=== PATIENT | male | born 1970 | race Caucasian/White ===

== ENCOUNTER 2022-01-30 10:00 | Outpatient (CLI) | payer MEDICARE, SELFPAY ==
[2022-01-30 13:56] LABS: Chloride* 105 mmol/L (96-114); Sodium* 141 mmol/L (135-149)
[2022-01-30 13:57] LABS: Potassium* 4.4 mmol/L (3.6-5.1)
[2022-01-30 13:59] LABS: Alanine Aminotransferase* 26 U/L (4-50); Blood Urea Nitrogen* 16 mg/dL (7-30); Carbon Dioxide* 29 mmol/L (20-32); Cholesterol* 134 mg/dL (90-199); Creatinine* 0.7 mg/dL (0.5-1.5); Estimated Glomerular Filt Rate 112 ml/min; Glucose* 250 mg/dL (60-115)
[2022-01-30 14:00] LABS: Calcium* 9.4 mg/dL (8.4-10.6); HDL Cholesterol* 40 mg/dL (>=40); LDL Cholesterol Calculated 58 mg/dL (<100); Triglycerides* 179 mg/dL (40-149)
[2022-01-30 14:30] LABS: PSA Screen* 0.85 ng/mL (0.10-4.00)
== END 2022-01-30 10:01 | disposition home or self-care (01) ==
PROVIDERS: PCP Family Medicine; Visit Provider Family Medicine
DX: Z00.00 Encounter for general adult medical examination without abnormal findings (principal); I10 Essential (primary) hypertension; E78.5 Hyperlipidemia, unspecified; Z12.5 Encounter for screening for malignant neoplasm of prostate
CPT/HCPCS: 80048; 80061; 84153; 84460

== ENCOUNTER 2022-03-26 12:31 | Outpatient (RCR) | payer MEDICARE, SELFPAY | END 2022-10-09 10:13 | disposition home or self-care (01) | PROVIDERS: PCP Family Medicine; Visit Provider Family Medicine | DX: I69.398 Other sequelae of cerebral infarction (principal); R25.2 Cramp and spasm; Z51.89 Encounter for other specified aftercare | CPT/HCPCS: 97166; 97530 ==

== ENCOUNTER 2023-03-11 13:47 | Outpatient (CLI) | payer MEDICARE, SELFPAY ==
[2023-03-11 22:09] LABS: Basophils Percent Auto 0.4 % (0.0-3.0); Eosinophils Percent Auto 1.4 % (0.0-7.0); Hemoglobin* 14.2 gm/dL (13.5-17.5); Immature Granulocytes Pct Auto 0.1 %; Mean Corpuscular HGB Conc 34 gm/dL (32-36); Mean Corpuscular Hemoglobin 31 pg (26-34); Mean Corpuscular Volume 92 fL (80-100); Monocytes Percent Auto 5.5 % (0.0-11.0); Neutrophils Percent Auto 63.6 % (42.0-72.0); Platelet Count* 317 K/uL (140-440); RDW Coefficient of Variation % 12.9 % (11.5-15.5); Red Blood Count 4.59 m/uL (4.30-5.90); White Blood Count* 11.26 K/uL (4.50-11.00)
[2023-03-11 22:12] LABS: Chloride* 102 mmol/L (96-114); Sodium* 140 mmol/L (135-149)
[2023-03-11 22:13] LABS: Potassium* 3.3 mmol/L (3.6-5.1)
[2023-03-11 22:15] LABS: Alanine Aminotransferase* 23 U/L (4-50); Anion Gap 8 mEq/L (7-15); Blood Urea Nitrogen* 12 mg/dL (7-30); Carbon Dioxide* 30 mmol/L (20-32); Cholesterol* 117 mg/dL (90-199); Estimated Glomerular Filt Rate 91 ml/min; Glucose* 60 mg/dL (60-115)
[2023-03-11 22:16] LABS: Calcium* 9.5 mg/dL (8.4-10.6); HDL Cholesterol* 44 mg/dL (>=40); LDL Cholesterol Calculated 50 mg/dL (<100); Triglycerides* 114 mg/dL (40-149)
[2023-03-11 22:22] LABS: Slide Review Reflex No
[2023-03-11 22:39] LABS: PSA Screen* 0.22 ng/mL (0.10-4.00)
== END 2023-03-11 13:48 | disposition home or self-care (01) ==
PROVIDERS: PCP Family Medicine; Visit Provider Family Medicine
DX: E11.9 Type 2 diabetes mellitus without complications (principal); E78.2 Mixed hyperlipidemia; I10 Essential (primary) hypertension; R32 Unspecified urinary incontinence
CPT/HCPCS: 80048; 80061; 84153; 84460; 85025

== ENCOUNTER 2023-08-26 13:51 | Outpatient (CLI) | payer MEDICARE, SELFPAY ==
--- NOTE | 2023-08-26 14:00 | US_ITS ---
Patient: LYNDON VILLARREAL Facility:?[facility] Patient ID:?[id number] Site Patient ID:?[id number]. Site :?1970 Study:?US-Extremity Bilateral JONH BILATERAL-08/26/2023 3:18:47 PM Ordering Physician:CHUCKY MITCHELL Final Report: Indication: NON-PRESSURE CHRONIC ULCER OF SKIN Comparison: None Technique: Routine duplex arterial examination of bilateral lower extremities including 2D and spectral analysis, and color Doppler imaging was performed. Findings: In the right lower extremity there are triphasic waveforms within the common femoral artery and proximal femoral artery. Monophasic waveform in the deep femoral artery. Elevated velocity is present within the mid right femoral artery measuring 219 cm/second with associated biphasic waveforms. Biphasic waveform within the distal femoral artery also noted. Monophasic waveforms are present within the popliteal, peroneal, posterior tibial, anterior tibial and dorsalis pedis arteries. In the left lower extremity there are triphasic waveforms within the common femoral, deep femoral and proximal femoral arteries. Monophasic waveforms mid and distal femoral artery with diminished velocities measuring 40 V cm per seconds. Similar findings in the popliteal artery. Monophasic waveforms in the peroneal, posterior tibial, anterior tibial and dorsalis pedis arteries. Impression: 50-75 percent stenosis of the mid right femoral artery. Significantly decreased velocities with monophasic waveforms involving the left mid and distal femoral artery and left popliteal artery suggesting near stenosis. CTA runoff of the lower extremity recommended for further evaluation. Dictated by Chucky Andrews MD @ 08/27/2023 6:37:38 AM Signed by:?Chucky Andrews MD @08/27/2023 6:37:38 AM (Electronic Signature)
== END 2023-08-26 13:52 | disposition home or self-care (01) ==
LOC: US 13:52
PROVIDERS: PCP Family Medicine; Visit Provider Family Medicine
DX: L98.499 Non-pressure chronic ulcer of skin of other sites with unspecified severity (principal); I70.201 Unspecified atherosclerosis of native arteries of extremities, right leg; I77.1 Stricture of artery
CPT/HCPCS: 93926

== ENCOUNTER 2023-10-17 08:02 | Outpatient (CLI) | payer MEDICARE, SELFPAY ==
--- OUTSIDE RECORDS SUMMARY | 2023-10-17 08:06 | XMS_ITS | Clinical Summary ---
Author Name Unknown Organization [facility] Address [place], [place] [address] Care Team Providers Care Supervisor [employer] Name Role Phone None Unavailable Unavailable Chucky Fregoso MD Primary Care Provider + Allergies Active Allergy Reactions Criticality Noted Date Comments Metformin Diarrhea,Nausea Only 09/07/2015 Medications Medication Sig Dispensed Refills Start Date End Date Status aspirin enteric coated (ECOTRIN) 325 mg tablet Take 1 tablet by mouth once daily with a meal. 0 5 Active dulaglutide (TRULICITY) 0.75 mg/0.5 mL injectionIndication s:Uncontrolled type 2 diabetes mellitus with other neurologic complication, unspecified fdc insulin use status Inject 0.75 mg subcutaneous once weekly. Failed metformin and glimepiride 1 pen 5 7 Active nitroglycerin (NITROSTAT) 0.4 mg sublingual tabletIndications:C hest pain in adult Place 1 tablet under the tongue every 5 minutes if needed for Chest Pain. 1 Bottle 2 8 Active omeprazole (PRILOSEC) 40 mg Delayed-Release capsuleIndications: Chronic gastritis, presence of bleeding unspecified, unspecified gastritis type TAKE 1 CAPSULE BY MOUTH EVERY DAY 90 capsule 2 8 Active traZODone (DESYREL) 50 mg tabletIndications:D epression, major, recurrent, in complete remission (HC) TAKE 1 TABLET BY MOUTH AT BEDTIME NEEDED 90 tablet 1 8 Active glimepiride (AMARYL) 4 mg tabletIndications:U ncontrolled type 2 diabetes mellitus with diabetic neuropathy, unspecified whether fdc insulin use TAKE 2 TABLETS BY MOUTH EVERY DAY WITH A MEAL 60 tablet 8 Active baclofen (LIORESAL) 10 mg tabletIndications:M uscle spasticity TAKE 1 TABLET BY MOUTH THREE TIMES DAILY NEEDED 90 tablet 8 Active levETIRAcetam (KEPPRA) 500 mg tabletIndications:S eizure-like activity (HC) Take 1 Tablet (500 mg) by mouth two times daily. 60 Tablet 3 Active aspirin 325 mg tablet Take 325 mg by mouth once daily. Active losartan (COZAAR) 100 mg tablet Take 100 mg by mouth once daily. Active nortriptyline (PAMELOR) 25 mg capsule Take 25 mg by mouth at bedtime. With 50 MG capsule for total of 75 MG. Active nortriptyline 50 mg capsule Take 50 mg by mouth at bedtime. With 25 MG for total of 75 MG. Active atorvastatin (LIPITOR) 40 mg tablet Take 40 mg by mouth once daily. Active gabapentin (NEURONTIN) 300 mg capsule Take 900 mg by mouth three times daily. Active pantoprazole (PROTONIX) 40 mg delayed-release tabletIndications:U pper abdominal pain Take 1 tablet by mouth once daily. 15 tablet 0 6 10/01/19 24 Discontinue d(Other - add note to specify (E-cancel not sent)) losartan (COZAAR) 25 mg tabletIndications:T ype 2 diabetes mellitus without complication, without long-term current use of insulin (HC) Take 1 tablet by mouth once daily. 90 tablet 1 7 10/01/19 24 Discontinue d(Other - add note to specify (E-cancel not sent)) albuterol HFA 90 mcg/actuation inhalerIndications: Community acquired pneumonia, unspecified laterality Inhale 2 Puffs by mouth 4 times daily. 1 Inhaler 7 10/01/19 24 Discontinue d(Other - add note to specify (E-cancel not sent)) aspirin chewable 81 mg chewable tablet CHEW 1 T PO QD 11 8 10/01/19 24 Discontinue d(Other - add note to specify (E-cancel not sent)) nicotine 21 mg/24 hr (NICODERM; HABITROL) 21 mg/24 hr patch Apply 1 Patch on dry, clean, hairless skin. 8 10/01/19 24 Discontinue d(Other - add note to specify (E-cancel not sent)) rosuvastatin (CRESTOR) 40 mg tablet Take 40 mg by mouth. 8 10/01/19 24 Discontinue d(Other - add note to specify (E-cancel not sent)) nortriptyline (PAMELOR) 25 mg capsuleIndications: Major depressive disorder with single episode, remission status unspecified TAKE 1 CAPSULE BY MOUTH AT BEDTIME 90 capsule 1 8 10/01/19 24 Discontinue d(Other - add note to specify (E-cancel not sent)) mirtazapine (REMERON) 30 mg tabletIndications:D epression, major, recurrent, in complete remission (HC) TAKE 1 TABLET BY MOUTH AT BEDTIME 90 tablet 1 8 10/01/19 24 Discontinue d(Other - add note to specify (E-cancel not sent)) LYRICA 75 mg capsuleIndications: Diabetic peripheral neuropathy (HC) TAKE 1 CAPSULE BY MOUTH TWICE DAILY 60 capsule 8 10/01/19 24 Discontinue d(Other - add note to specify (E-cancel not sent)) nitroglycerin (NITROSTAT) 0.[address] 0.4 mg under the tongue one time if needed. 8 10/01/19 24 Discontinue d(Other - add note to specify (E-cancel not sent)) oxyCODONE (ROXICODONE) 5 mg immediate release tabletIndications:M usculoskeletal neck pain Take 1 tablet by mouth every 6 hours if needed for Pain 8 tablet 8 10/01/19 24 Discontinue d(Other - add note to specify (E-cancel not sent)) cyclobenzaprine (FLEXERIL) 10 mg tabletIndications:M usculoskeletal neck pain Take 1 tablet by mouth 3 times daily. 12 tablet 8 10/01/19 24 Discontinue d(Other - add note to specify (E-cancel not sent)) ondansetron (ZOFRAN ODT) 4 mg disintegrating tabletIndications:I ntractable vomiting with nausea, unspecified vomiting type Place 1 Tablet (4 mg) on the tongue every 8 hours if needed for Nausea/Vomiting. 10 Tablet 1 10/01/19 24 Discontinue d(Other - add note to specify (E-cancel not sent)) ondansetron (ZOFRAN ODT) 4 mg disintegrating tabletIndications:N ausea and vomiting, unspecified vomiting type,Dehydration Place 1 Tablet (4 mg) on the tongue every 6 hours if needed for Nausea/Vomiting. 20 Tablet 3 10/01/19 24 Discontinue d(Other - add note to specify (E-cancel not sent)) Active Problems Problem Noted Date Diagnosed Date History of medication noncompliance 08/14/2023 Right carotid artery occlusion 08/14/2023 Overview: 2013, Stroke Non-healing open wound of toe 08/14/2023 Arterial insufficiency of lower extremity 2023 Episode of abnormal behavior 12/13/2014 Overview: Became combative/minimally responsive DM (diabetes mellitus), type 2 with complication s 12/13/2014 Episode of shaking 12/13/2014 Overview: Possible seizure activity; loss of bladder control Chronic pain 12/13/2014 Overview: Patient's girlfriend Hx of completed stroke 12/13/2014 Overview: Chronic left sided weakness (no use of left arm, weakness in left leg but able to ambulate short distances); uses motorized scooter CAD S/P percutaneous coronary angioplasty 2014 Overview: With stent placement; 08/2013; on chronic antiplatelet therapy Marijuana use 12/13/2014 Overview: Used marijuana Saturday evening Encounters Date Type Department Care Team Description 10/09/2023 Telephone [facility] at [address] [phone] Mary Bradley MD Follow Up 10/09/2023 Telephone [facility] [place] [address] [place] [address] Mary Bradley MD Follow Up 10/01/2023 2:00 PM CDT Office Visit [facility] [place] [address] [place] [phone] Mary Bradley MD CV Vascular New (Consult; Arterial insufficiency. Referred by Dr. Chucky Fregoso[facility], all records scanned to [facility]. U/S from [place]-08/26/19 24 available in [place], report scanned to [facility]. SASKIA's scheduled prior.) 10/01/2023 1:30 PM CDT - 10/01/2023 11:59 PM CDT Hospital Encounter [facility] [address] [address] Ghazala Issa PA Moore, Brian H 10/01/2023 Travel 09/26/2023 Orders Only [facility] [address] [address] Ghazala Issa PA 1 scan: (1-Ord) ANKLE BRACHIAL INDEX BILATERAL ([id number]) 08/26/2023 Orders Only [facility] Scanner 1 scan: (1-Ord) [facility] ARTERIAL DUPLEX LE BI, 08/26/2023 08/19/2023 Telephone [facility] [address] [place] [phone] Chris Newell MD Referral 08/14/2023 Orders Only [facility] [address] [place] [id number] Selina Crawford NP <No scans attached> from Last 3 Months Immunizations Name Administration Dates Next Due Influenza A (H1N1), Inactivated 07/27/2009 Influenza Virus, Unspecified 05/10/2008 Influenza, IIV4 05/13/2017,07/20/2014 Pneumococcal Poly,23-Valent (Pneumovax) 09/08/19 14 Social History Tobacco Use Types Packs/Day Years Used Date Smoking Tobacco: Former Cigarettes 0.5 40 0 07/01/1983 - 07/01/2023 Smokeless Tobacco: Never Tobacco Cessation:Counseling Given: Not Answered Comments:pt declines Alcohol Use Standard Drinks/Week Comments No 0 (1 standard drink = 0.6 oz pur e alcohol) PHQ-2 Answer Date Recorded PHQ-2 Score 5 09/02/2018 Sex and Gender Information Value Date Recorded Sex Assigned at Not on file Gender Identity Not on file Sexual Orientation Not on file Obstetrics History Last Filed Vital Signs Vital Sign Reading Time Taken Comments Blood Pressure 162/96 10/01/2023 2:17 PM CDT Pulse 104 10/01/2023 2:17 PM CDT Temperature 36.5 ??C (97.7 ??F) 07/03/2023 10:[address] Respiratory Rate 16 10/01/2023 2:17 PM CDT Oxygen Saturation 99% 10/01/2023 2:17 PM CDT Inhaled Oxygen Concentration - - Weight 65.8 kg (145 lb) 10/01/2023 2:17 PM CDT Height 175.3 cm (5' 9) 07/03/2023 10:10 PM HOTEL RECREATIONAL FACILITIES MANAGER Body Mass Index 21.41 07/03/2023 10:10 PM HOTEL RECREATIONAL FACILITIES MANAGER Plan of Treatment Upcoming Encounters Date Type Department Care Team (Late st Contact Info) Description 10/21/2023 10:00 AM CDT Appointment [facility] [address] [place] [address] 11/20/2023 8:30 AM CDT Office Visit [facility] at [facility] [address] [place] [address] Mary Bradley MD [address] [place] [address] Health Maintenance Due Date Last Done Comments Tdap 1982 HIV for age 15-65 1986 BMI (ht and wt on same day) for age 18+ 1989 Hepatitis C screening for age 18-79 1989 Tetanus booster 1991 Colonoscopy through age 75 2016 Depression screening for age 12+ 11/21/2018 11/21/2017, 05/13/2017, 03/15/2016 Lipids for age 45-75 11/09/2020 11/10/2015, 11/10/19 16 Zoster (shingles) series for age 50+ (1 of 2) 2021 COVID-19 vaccine series (2022-24 season) 2023 Influenza for age 50-64 03/01/2024 05/13/20 17, 07/20/2014, 07/27/2009, Additional history exists Pneumococcal series for age 6-64 Aged Out 09/07/2013 No longer eligible based on patient's age to complete this topic Procedures Procedure Name Priority Date/Time Associated Diagnosis Comments US ANKLE BRACHIAL INDEX BILATERAL Routine 10/01/2023 2:12 PM CDT Arterial insufficiency of lower extremity (HC) SCAN-ULTRASOUND REPORT 08/26/2023 12:00 AM HOTEL RECREATIONAL FACILITIES MANAGER LIPID PANEL W REFLEX MEASURED LDL Routine 11/10/2015 12:32 PM CDT Type 2 diabetes mellitus with diabetic neuropathy (HCC) from Last 3 Months or Most Recently Relevant to Health Maintenance Results * US ANKLE BRACHIAL INDEX BILATERAL (10/01/2023 2:12 PM CDT) Anatomical Region Laterality Modality ANKLES, ANKLE L, ANKLE R Ultraso und 10/01/2023 1:51 PM CDT Narrative 10/01/2023 5:35 PM CDT VASCULAR ULTRASOUND REPORT LYNDON SMITH Accession#: ?? [id number] : ?1970 ?? Study Date: ?? 10/01/2023 1:51:47 PM Age: ?53 years ?? Tech: ? BHM Gender: M ?Referring MD: GHAZALA ISSA Site: [facility] Study performed: ?Lower extremity resting SASKIA, TBI, (bilateral). Indication for study: Non-healing wound in LE, Follow-up known PAD Study Quality: ?Good TECHNIQUE: Lower/upper extremity arteries were examined per exam protocol by duplex ultrasound, color-flow and spectral Doppler. Peak systolic velocities (PSV), Doppler waveform quality, velocity ratios and vessel size in cm, were documented at protocol specific sites. Physiologic data including segmental pressures, ankle/brachial index (SASKIA), digit PPG recordings, laser Doppler flowmetry, transcutaneous oximetry, and digit temperatures were documented at sites per exam protocol and test requirements. IMPRESSION: 1. Resting ankle-brachial index is borderline on the right at 0.96 and is moderately reduced on the left at 0.68. 2. Toe-brachial index is moderately reduced on the right at 0.39 and toe- brachial index is moderately to severely reduced on the left at 0.24. COMPARISON: No prior study available for comparison. FINDINGS: Right toe/brachial index indicates moderate range. Left toe/brachial index indicates moderate to severe range. Pressures +-----+ +--------+ +-----+ ? RIGHT (mmHg) ? LEFT (mmHg) ? +-----+ +--------+ +-----+ Index ?153 ? Brachial ?152 ? Index +-----+ +--------+ +-----+ 0.96 ?147 ?RIVER CROSSING SUPERVISOR ?104 ? 0.68 +-----+ +--------+ +-----+ 0.61 ? 94 ?DPA ? +-----+ +--------+ +-----+ 0.39 ? 59 ? Digit 1 ?37 ? 0.24 +-----+ +--------+ +-----+ Chris Newell MD. Electronically signed on 10/01/2023 5:35:37 PM This study was performed and interpreted by a service accredited by the Intersocietal Accreditation Commission (IAC/Vascular), www.intersocietal.org/vascular Report generated by [employer]. ??Final ?? Procedure Note Chris Newell MD - 10/01/2023 VASCULAR ULTRASOUND REPORT LYNDON SMITH : 1970 Study Date: 10/01/2023 1:51:47 PM Age: 53 years Tech: [facility] Gender: M Referring MD: GHAZALA ISSA Site: [facility] Study performed: Lower extremity resting SASKIA, TBI, (bilateral). Indication for study: Non-healing wound in LE, Follow-up known PAD Study Quality: Good TECHNIQUE: Lower/upper extremity arteries were examined per exam protocol by duplexultrasound, color-flow and spectral Doppler. Peak systolic velocities(PSV), Doppler waveform quality, velocity ratios and vessel size in cm,were documented at protocol specific sites. Physiologic data includingsegmental pressures, ankle/brachial index (SASKIA), digit PPG recordings,laser Doppler flowmetry, transcutaneous oximetry, and digit temperatureswere documented at sites per exam protocol and test requirements. IMPRESSION: 1. Resting ankle-brachial index is borderline on the right at 0.96 and ismoderately reduced on the left at 0.68. 2. Toe-brachial index is moderately reduced on the right at 0.39 andtoe-brachial index is moderately to severely reduced on the left at0.24. COMPARISON: No prior study available for comparison. FINDINGS: Right toe/brachial index indicates moderate range. Left toe/brachial index indicates moderate to severe range. Pressures +-----+ +--------+ +-----+ RIGHT (mmHg) LEFT (mmHg) +-----+ +--------+ +-----+ Index 153 Brachial 152 Index +-----+ +--------+ +-----+ 0.96 147 RIVER CROSSING SUPERVISOR 104 0.68 +-----+ +--------+ +-----+ 0.61 94 DPA +-----+ +--------+ +-----+ 0.39 59 Digit 1 37 0.24 +-----+ +--------+ +-----+ Chris Newell MD. Electronically signed on 10/01/2023 5:35:37 PM This study was performed and interpreted by a service accredited by theIntersocietal Accreditation Commission (IAC/Vascular),www.intersocietal.org/vascular Report generated by [employer]. Final Ghazala RODRIGUEZ US * SCAN-ULTRASOUND REPORT (08/26/2023 12:00 AM HOTEL RECREATIONAL FACILITIES MANAGER) Anatomical Region Laterality Modality Other Scanner OTHER * (ABNORMAL) LIPID PANEL W REFLEX MEASURED LDL (11/10/2015 12:32 PM CDT) CHOLESTEROL,TOTAL 218(H) 100 - 199 mg/dL 11/10/2015 1:17 PM CDT [facility] TRIGLYCERIDES 444(H) <150 mg/dL 11/10/2015 1:17 PM CDT [facility] HDL CHOLESTEROL 32(L) >40 mg/dL 11/10/2015 1:17 PM CDT [facility] NON-HDL CHOLESTEROL 186(H) <145 mg/dl 11/10/2015 1:17 PM CDT [facility] CHOL/HDL RATIO 6.81(H) <4.50 11/10/2015 1:17 PM CDT [facility] LDL CHOLESTEROL 11/10/2015 1:17 PM CDT [facility] Comment:Invalid LDL when Tri g >400, reflexed to measured LDL PATIENT STATUS FASTING 11/10/2015 1:17 PM CDT [facility] Blood specimen (specimen) BLOOD SPECIMEN / Unknown Venipuncture / Unknown 11/10/2015 12:32 PM CDT 11/10/2015 12:32 PM CDT Kem Hamilton MD CHEMISTRY [facility] [address] [facility] [place] [address], [place] [phone] from Last 3 Months or Most Recently Relevant to Health Maintenance Advance Directives * Full Code (Latest Code Status on File) Date Activated Date Inactivated Comments 12/13/2014 9:01 AM 12/13/2014 9:11 PM Care Teams Supervisor [employer] Relationship Specialty Start Date End Date Chucky Fregoso MD [address] [place] [address] PCP - General Family Practice 05/28/18 None . 04/29/14
== END 2023-10-17 08:03 | disposition home or self-care (01) ==
PROVIDERS: PCP Family Medicine; Visit Provider Nurse Practitioner Family
DX: E11.621 Type 2 diabetes mellitus with foot ulcer (principal); L97.528 Non-pressure chronic ulcer of other part of left foot with other specified severity; S81.802A Unspecified open wound, left lower leg, initial encounter; Z79.84 Long term (current) use of oral hypoglycemic drugs; Z79.85 Long-term (current) use of injectable non-insulin antidiabetic drugs; I77.1 Stricture of artery
CPT/HCPCS: 97602; G0463

== ENCOUNTER 2023-10-28 15:53 | Outpatient (CLI) | payer MEDICARE, SELFPAY ==
--- OUTSIDE RECORDS SUMMARY | 2023-10-28 15:55 | XMS_ITS | Clinical Summary ---
Author Name Unknown Organization [facility] Address [place], [place] [address] Care Team Providers Care Digital Imager Name Role Phone None Unavailable Unavailable Chucky [...] diabetes mellitus with other neurologic complication, unspecified correction insulin use status Inject 0.75 mg subcutaneous [...] diabetes mellitus with diabetic neuropathy, unspecified whether correction insulin use TAKE 2 TABLETS BY MOUTH [...] Encounters Date Type Department Care Team Description 10/21/2023 9:53 AM CDT - 10/21/2023 11:59 PM CDT Hospital Encounter [address] [address] Selina Crawford NP Non-healing open wound of toe, sequela; PAD (peripheral artery disease) (HC) 10/21/2023 Travel 10/09/2023 Telephone [facility] [address] [place] [address] Mary Bradley MD Follow Up 10/09/2023 Telephone [facility] [address] [place] [address] Mary Bradley MD Follow Up 10/01/2023 2:00 PM CDT Office Visit [facility] [address] [place] [address] Mary Bradley MD CV Vascular New (Consult; Arterial insufficiency. Referred by Dr. Chucky Fregoso-[facility], all records scanned to [facility]. U/S from Roff-08/26/19 24 available in [facility], report scanned to [facility]. SASKIA's scheduled prior.) 10/01/2023 1:30 PM CDT - 10/01/2023 11:59 PM CDT Hospital Encounter [facility] [address] [place] [address] Ghazala Issa PA Moore, Brian H 10/01/2023 Travel 09/26/2023 Orders Only [facility] [address] [place] [address] Ghazala Issa PA 1 scan: (1-Ord) ANKLE BRACHIAL INDEX BILATERAL ([id number]) 08/26/2023 Orders Only [facility] Scanner 1 scan: (1-Ord) [facility] ARTERIAL DUPLEX LE BI, 08/26/2023 08/19/2023 Telephone [facility] [address] [place] [address] Chris Newell MD Referral 08/14/2023 Orders Only [facility] [address] [place] [address] Selina Crawford NP <No scans attached> from [...] 175.3 cm (5' 9) 07/03/2023 10:10 PM CAMBERING MACHINE OPERATOR Body Mass Index 21.41 07/03/2023 10:10 PM CAMBERING MACHINE OPERATOR Plan of Treatment Upcoming Encounters Date Type Department Care Team (Late st Contact Info) Description 11/20/2023 8:30 AM CDT Office Visit [facility] at [address] [id number] Mary Bradley MD [address] [place] [address] Health Maintenance Due Date Last Done Comments [...] (1 of 2) 2021 COVID-19 vaccine series ( - 2022-24 season) 2023 Influenza for age 50-64 03/01/2024 05/13/20 17, 07/20/2014, 07/27/2009, Additional history exists Pneumococcal series for age 6-64 Aged Out 09/07/2013 No longer eligible based on patient's age to complete this topic Procedures Procedure Name Priority Date/Time Associated Diagnosis Comments CT ANGIO ABDOMEN PELVIS LOWER EXTREMITY RUNOFF Routine 10/21/2023 10:44 AM CDT Non-healing open wound of toe, sequela PAD (peripheral artery disease) (HC) US ANKLE BRACHIAL INDEX BILATERAL Routine 10/01/2023 2:12 PM CDT Arterial insufficiency of lower extremity (HC) SCAN-ULTRASOUND REPORT 08/26/2023 12:00 AM CAMBERING MACHINE OPERATOR LIPID PANEL W REFLEX MEASURED LDL Routine 11/10/2015 12:32 PM CDT Type 2 diabetes mellitus with diabetic neuropathy (HCC) from Last 3 Months or Most Recently Relevant to Health Maintenance Results * CT ANGIO ABDOMEN PELVIS LOWER EXTREMITY RUNOFF (10/21/2023 10:44 AM CDT) Anatomical Region Laterality Modality Abdomen, Pelvis, AORTA, LIVER, SPLEEN Computed Tomography 10/21/2023 6:01 PM CDT Narrative 10/21/2023 6:01 PM CDT For Patients: ??As a result of the Century Cures Act, medical imaging exams and procedure reports are released immediately into your electronic medical record. ??You may view this report before your referring provider. ??If you have questions, please contact your health care provider. Indication: Nonhealing wound on the toe. Peripheral vascular disease. Claudication. Technique: CTA of the abdomen/pelvis/lower extremities. 147 mL Omnipaque 350. Coronal and sagittal reformations. 3D MIP reconstructed images generated on an independent workstation. Comparison: None available Findings: Vascular: Abdominal aorta: No aneurysm or dissection. There is moderate/large amount of mural plaque in the distal abdominal aorta which narrows the lumen by at least 50 percent. Celiac axis: Variant anatomy with separate origins of the common hepatic, left gastric, and splenic arteries which are all patent. Superior mesenteric artery: Patent. Inferior mesenteric artery: Patent. LEFT Renal: High-grade ostial stenosis.. RIGHT Renal: High-grade ostial stenosis.. RIGHT lower extremity: Common iliac artery: Patent. Internal iliac artery: Occluded proximally with distal branches filling via collaterals. External iliac artery: Focal 50 percent narrowing in proximal external iliac artery. Common femoral artery: Patent. Deep femoral artery: Patent. Superficial femoral artery: Scattered calcified and soft plaque with multifocal moderate stenoses and 1 short segment severe stenosis in the mid SFA. Intermediate length moderate stenosis in the adductor canal. Popliteal artery: Patent. Anterior tibial artery: Occluded proximally. Peroneal artery: Patent. Posterior tibial artery: Occluded proximally and reconstitutes at the level of the foot from the peroneal artery. LEFT lower extremity: Common iliac artery: Patent. Internal iliac artery: Severe ostial stenosis. External iliac artery: Short segment high-grade stenosis at proximal aspect. Remainder is patent. Common femoral artery: Patent. Deep femoral artery: Patent. Superficial femoral artery: Occluded. Popliteal artery: Occluded. Anterior tibial artery: Occluded. Peroneal artery: Reconstitutes from collaterals and is the primary runoff to the foot. Posterior tibial artery: Occluded proximally but reconstitutes at the level of the ankle. Nonvascular: Arterial phase imaging limits evaluation of the solid abdominal organs. Lung Bases: 3 mm nodule adjacent to left fissure (series 3, image 89). Additional small flat nodular areas on the left fissure are likely fissural lymph nodes. Triangular lymph node on the right major fissure (series 5, image 43). No discrete pulmonary nodules not associated with a fissure. Liver: Normal. Gallbladder: Normal. Spleen: Normal. Pancreas: Normal. Adrenal glands: Normal. Kidneys: No hydronephrosis. Kidneys enhance symmetrically. No enhancing renal mass. Bowel: No obstruction or ileus. No wall thickening. Normal appendix. No free air or free fluid. Lymph nodes: No lymphadenopathy by CT size criteria. Pelvis: Urinary bladder is unremarkable. Prostate size is unremarkable.. Abdominal wall: Unremarkable. Lower extremities: Soft tissues of lower extremities unremarkable. Bones: No acute or aggressive appearing osseous lesions. Impression: 1. Atherosclerosis of the infrarenal abdominal aorta with mural plaque narrowing the lumen by at least 50 percent in some regions. 2. High-grade ostial stenosis bilateral renal arteries. 3. Right leg: - Common iliac patent. 50 percent narrowing of external iliac artery origin. Remainder patent. Occluded origin internal iliac artery. - Common/profunda femoral arteries patent. Scattered calcified and soft plaque in the SFA with multifocal moderate and at least 1 severe stenoses. - Patent popliteal artery. Single-vessel runoff via peroneal artery. This reconstitutes the posterior tibial artery at the ankle. 4. Left leg: - Patent common iliac artery. Severe ostial stenosis of internal iliac artery and high-grade stenosis of proximal external iliac artery. - Patent common and profunda femoral arteries. Long segment occlusion of the superficial femoral and popliteal arteries. - Peroneal artery reconstitutes from collaterals and is the main runoff vessel to the foot. It reconstitutes the posterior tibial artery at the ankle Please note that all CT scans at this facility use dose modulation, iterative reconstruction, and/or weight-based dosing when appropriate to reduce radiation dose to as low as reasonably achievable. Dictated by Ronaldo Daigle MD @ 10/21/2023 6:01:41 PM (Electronically Signed) Procedure Note Ronaldo Daigle MD - 10/21/2023 For Patients: As a result of the 21st Century Cures Act, medical imagingexams and procedure reports are released immediately into your electronicmedical record. You may view this report before your referring provider.If you have questions, please contact your health care provider. Indication: Nonhealing wound on the toe. Peripheral vascular disease. Claudication. Technique: CTA of the abdomen/pelvis/lower extremities. 147 mL Omnipaque 350. Coronaland sagittal reformations. 3D MIP reconstructed images generated on [employer] workstation. Comparison: None available Findings: Vascular: Abdominal aorta: No aneurysm or dissection. There is moderate/large amountof mural plaque in the distal abdominal aorta which narrows the lumen byat least 50 percent. Celiac axis: Variant anatomy with separate origins of the common hepatic,left gastric, and splenic arteries which are all patent. Superior mesenteric artery: Patent. Inferior mesenteric artery: Patent. LEFT Renal: High-grade ostial stenosis.. RIGHT Renal: High-grade ostial stenosis.. RIGHT lower extremity: Common iliac artery: Patent. Internal iliac artery: Occluded proximally with distal branches fillingvia collaterals. External iliac artery: Focal 50 percent narrowing in proximal externaliliac artery. Common femoral artery: Patent. Deep femoral artery: Patent. Superficial femoral artery: Scattered calcified and soft plaque withmultifocal moderate stenoses and 1 short segment severe stenosis in themid SFA. Intermediate length moderate stenosis in the adductor canal. Popliteal artery: Patent. Anterior tibial artery: Occluded proximally. Peroneal artery: Patent. Posterior tibial artery: Occluded proximally and reconstitutes at thelevel of the foot from the peroneal artery. LEFT lower extremity: Common iliac artery: Patent. Internal iliac artery: Severe ostial stenosis. External iliac artery: Short segment high-grade stenosis at proximalaspect. Remainder is patent. Common femoral artery: Patent. Deep femoral artery: Patent. Superficial femoral artery: Occluded. Popliteal artery: Occluded. Anterior tibial artery: Occluded. Peroneal artery: Reconstitutes from collaterals and is the primary runoffto the foot. Posterior tibial artery: Occluded proximally but reconstitutes at thelevel of the ankle. Nonvascular: Arterial phase imaging limits evaluation of the solid abdominal organs. Lung Bases: 3 mm nodule adjacent to left fissure (series 3, image 89).Additional small flat nodular areas on the left fissure are likelyfissural lymph nodes. Triangular lymph node on the right major fissure(series 5, image 43). No discrete pulmonary nodules not associated with afissure. Liver: Normal. Gallbladder: Normal. Spleen: Normal. Pancreas: Normal. Adrenal glands: Normal. Kidneys: No hydronephrosis. Kidneys enhance symmetrically. No enhancingrenal mass. Bowel: No obstruction or ileus. No wall thickening. Normal appendix. Nofree air or free fluid. Lymph nodes: No lymphadenopathy by CT size criteria. Pelvis: Urinary bladder is unremarkable. Prostate size is unremarkable.. Abdominal wall: Unremarkable. Lower extremities: Soft tissues of lower extremities unremarkable. Bones: No acute or aggressive appearing osseous lesions. Impression: 1. Atherosclerosis of the infrarenal abdominal aorta with mural plaquenarrowing the lumen by at least 50 percent in some regions. 2. High-grade ostial stenosis bilateral renal arteries. 3. Right leg: - Common iliac patent. 50 percent narrowing of external iliac arteryorigin. Remainder patent. Occluded origin internal iliac artery. - Common/profunda femoral arteries patent. Scattered calcified and softplaque in the SFA with multifocal moderate and at least 1 severe stenoses. - Patent popliteal artery. Single-vessel runoff via peroneal artery. Thisreconstitutes the posterior tibial artery at the ankle. 4. Left leg: - Patent common iliac artery. Severe ostial stenosis of internal iliacartery and high-grade stenosis of proximal external iliac artery. - Patent common and profunda femoral arteries. Long segment occlusion ofthe superficial femoral and popliteal arteries. - Peroneal artery reconstitutes from collaterals and is the main runoffvessel to the foot. It reconstitutes the posterior tibial artery at theankle Please note that all CT scans at this facility use dose modulation,iterative reconstruction, and/or weight-based dosing when appropriate toreduce radiation dose to as low as reasonably achievable. Dictated by Ronaldo Daigle MD @ 10/21/2023 6:01:41 PM (Electronically Signed) Selina Crawford NP CT * US ANKLE BRACHIAL INDEX BILATERAL (10/01/2023 2:12 PM CDT) Anatomical Region Laterality Modality ANKLES, ANKLE L, ANKLE R Ultraso und 10/01/2023 1:51 PM CDT Narrative 10/01/2023 5:35 PM CDT VASCULAR ULTRASOUND REPORT LYNDON SMITH Accession#: ?? [id number] : ?1970 ?? Study Date: ?? 10/01/2023 1:51:47 PM Age: ?53 years ?? Tech: ? [facility] Gender: M ?Referring MD: GHAZALA ISSA Site: [facility] Vascular Center Study performed: ?Lower extremity resting [...] ? Index +-----+ +--------+ +-----+ 0.96 ?147 ?HOUSE PLAYER ?104 ? 0.68 +-----+ +--------+ +-----+ 0.61 ? 94 ?DPA ? +-----+ +--------+ +-----+ 0.39 ? 59 ? Digit 1 ?37 ? 0.24 +-----+ +--------+ +-----+ Chris Newell MD. Electronically signed on 10/01/2023 5:35:37 PM This study was performed and interpreted by a service accredited by the Intersocietal Accreditation Commission (IAC/Vascular), [email or web address].org/vascular Report generated by [employer]. ??Final ?? Procedure Note Chris Newell MD - 10/01/2023 VASCULAR ULTRASOUND REPORT LYNDON SMITH : 1970 Study Date: 10/01/2023 1:51:47 PM Age: 53 years Tech: [facility] Gender: M Referring MD: GHAZALA ISSA Site: [facility] Vascular Center Study performed: Lower extremity resting [...] 152 Index +-----+ +--------+ +-----+ 0.96 147 HOUSE PLAYER 104 0.68 +-----+ +--------+ +-----+ 0.61 94 DPA +-----+ +--------+ +-----+ 0.39 59 Digit 1 37 0.24 +-----+ +--------+ +-----+ Chris Newell MD. Electronically signed on 10/01/2023 5:35:37 PM This study was performed and interpreted by a service accredited by theIntersocietal Accreditation Commission (IAC/Vascular),[email or web address]/vascular Report generated by [employer]. Final Ghazala RODRIGUEZ US * SCAN-ULTRASOUND REPORT (08/26/2023 12:00 AM CAMBERING MACHINE OPERATOR) Anatomical Region Laterality Modality Other Scanner OTHER * (ABNORMAL) LIPID PANEL W REFLEX MEASURED LDL (11/10/2015 12:32 PM CDT) CHOLESTEROL,TOTAL 218(H) 100 - 199 mg/dL 11/10/2015 1:17 PM CDT [facility] TRIGLYCERIDES 444(H) <150 mg/dL 11/10/2015 1:17 PM CDT [facility] HDL CHOLESTEROL 32(L) >40 mg/dL 11/10/2015 1:17 PM CDT [facility] NON-HDL CHOLESTEROL 186(H) <145 mg/dl 11/10/2015 1:17 PM CDT [facility] CHOL/HDL RATIO 6.81(H) <4.50 11/10/2015 1:17 PM CDT [facility] LDL CHOLESTEROL 11/10/2015 1:17 PM CDT [facility] Comment:Invalid LDL when Tri g >400, reflexed to measured LDL PATIENT STATUS FASTING 11/10/2015 1:17 PM CDT [facility] Blood specimen (specimen) BLOOD SPECIMEN / Unknown Venipuncture / Unknown 11/10/2015 12:32 PM CDT 11/10/2015 12:32 PM CDT Kem Hamilton MD CHEMISTRY [facility] [address] [facility] [place] [address], from Last 3 Months or Most Recently Relevant to Health Maintenance Advance Directives * Full Code (Latest Code Status on File) Date Activated Date Inactivated Comments 12/13/2014 9:01 AM 12/13/2014 9:11 PM Care Teams Digital Imager Relationship Specialty Start Date End Date Chucky Fregoso MD [address] [place] [address] PCP - General Family Practice 05/28/18 None . 04/29/14
== END 2023-10-28 15:54 | disposition home or self-care (01) ==
LOC: WOUND 15:54
PROVIDERS: PCP Family Medicine; Visit Provider Nurse Practitioner Family
DX: I70.245 Atherosclerosis of native arteries of left leg with ulceration of other part of foot (principal); E11.621 Type 2 diabetes mellitus with foot ulcer; L97.528 Non-pressure chronic ulcer of other part of left foot with other specified severity; I70.248 Atherosclerosis of native arteries of left leg with ulceration of other part of lower leg; L97.828 Non-pressure chronic ulcer of other part of left lower leg with other specified severity; S91.302A Unspecified open wound, left foot, initial encounter
CPT/HCPCS: 97602; G0463

== ENCOUNTER 2023-11-11 08:59 | Outpatient (CLI) | payer MEDICARE, SELFPAY ==
--- OUTSIDE RECORDS SUMMARY | 2023-11-11 09:04 | XMS_ITS | Clinical Summary ---
Author Name Unknown Organization [facility] Address [place], [place] [address] Care Team Providers Care Laborer Steel Handling Name Role Phone None Unavailable Unavailable Chucky Fregoso MD Primary Care Provider + Allergies Active Allergy Reactions Criticality Noted Date Comments Metformin Diarrhea,Nausea Only 09/07/2015 Medications Medication Sig Dispensed Refills Start Date End Date Status aspirin enteric coated (ECOTRIN) 325 mg tablet Take 1 tablet by mouth once daily with a meal. 0 12/22/2014 Active dulaglutide (TRULICITY) 0.75 mg/0.5 mL injectionIndicatio ns:Uncontrolled type 2 diabetes mellitus with other neurologic complication, unspecified jail insulin use status Inject 0.75 mg subcutaneous once weekly. Failed metformin and glimepiride 1 pen 5 05/13/2017 Active nitroglycerin (NITROSTAT) 0.4 mg sublingual tabletIndications: Chest pain in adult Place 1 tablet under the tongue every 5 minutes if needed for Chest Pain. 1 Bottle 2 11/21/2017 Active omeprazole (PRILOSEC) 40 mg Delayed-Release capsuleIndications :Chronic gastritis, presence of bleeding unspecified, unspecified gastritis type TAKE 1 CAPSULE BY MOUTH EVERY DAY 90 capsule 2 01/17/2018 Active traZODone (DESYREL) 50 mg tabletIndications: Depression, major, recurrent, in complete remission (HC) TAKE 1 TABLET BY MOUTH AT BEDTIME NEEDED 90 tablet 1 02/24/2018 Active glimepiride (AMARYL) 4 mg tabletIndications: Uncontrolled type 2 diabetes mellitus with diabetic neuropathy, unspecified whether jail insulin use TAKE 2 TABLETS BY MOUTH EVERY DAY WITH A MEAL 60 tablet 03/30/2018 Active baclofen (LIORESAL) 10 mg tabletIndications: Muscle spasticity TAKE 1 TABLET BY MOUTH THREE TIMES DAILY NEEDED 90 tablet 04/01/2018 Active levETIRAcetam (KEPPRA) 500 mg tabletIndications: Seizure-like activity (HC) Take 1 Tablet (500 mg) by mouth two times daily. 60 Tablet 04/18/2023 Active aspirin 325 mg tablet Take 325 [...] mg by mouth three times daily. Active Active Problems Problem Noted Date Diagnosed Date History of medication noncompliance 08/14/2023 Right carotid artery occlusion 08/14/2023 Overview: 2014, Stroke Non-healing open wound of toe 08/14/2023 [...] - 10/21/2023 11:59 PM CDT Hospital Encounter [facility] [address] [place] [address] eSlina Crawford NP Non-healing open wound of toe, sequela; PAD (peripheral artery disease) (HC) 10/21/2023 Travel 10/09/2023 Telephone [facility] [address] [place] [phone] Mary Bradley MD Follow Up 10/09/2023 Telephone [facility] [place] [address], [place] [address] Mary Bradley MD Follow Up 10/01/2023 2:00 PM CDT Office Visit [facility] [place] [address] [place] [address] Mary Bradley MD CV Vascular New (Consult; Arterial insufficiency. Referred by Dr. Chucky Fregoso-[facility], all records scanned to EPIC. U/S from [place]-08/26/19 24 available in [facility], report scanned to EPIC. SASKIA's scheduled prior.) 10/01/2023 1:30 PM CDT - 10/01/2023 11:59 PM CDT Hospital Encounter [facility] [address] [place] [address] Ghazala Issa PA Moore, Brian H 10/01/2023 Travel 09/26/2023 Orders Only [facility] [place] [facility] [address] [place] [address] Ghazala Issa PA 1 scan: (1-Ord) US ANKLE BRACHIAL INDEX BILATERAL ([id number]) 08/26/2023 Orders Only [facility] Scanner 1 scan: (1-Ord) [facility] ARTERIAL DUPLEX LE BI, 08/26/2023 08/19/2023 Telephone [facility] [address], [place] [address] Chris Newell MD Referral 08/14/2023 Orders Only [facility] [address] [place] [address] Selina Crawford NP <No scans attached> from [...] 175.3 cm (5' 9) 07/03/2023 10:10 PM 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 Body Mass Index 21.41 07/03/2023 10:10 PM 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 Plan of Treatment Upcoming Encounters Date Type Department Care Team (Late st Contact Info) Description 11/20/2023 8:30 AM CDT Office Visit [facility] at [address] [phone] Mary Bradley MD [address] [place] [address] Health Maintenance Due Date Last Done Comments [...] 2) 2021 COVID-19 vaccine series ( - 2022- season) 2023 Influenza for age 50-64 03/01/2024 [...] extremity (HC) SCAN-ULTRASOUND REPORT 08/26/2023 12:00 AM 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 LIPID PANEL W REFLEX MEASURED LDL Routine [...] For Patients: ??As a result of the 21st Century Cures Act, medical imaging exams and [...] For Patients: As a result of the Cures Act, medical imagingexams and procedure reports are released immediately into your electronicmedical record. You may view this report before your referring provider.If you have questions, please contact your health care provider. Indication: Nonhealing wound on the toe. Peripheral vascular disease. Claudication. Technique: CTA of the abdomen/pelvis/lower extremities. 147 mL Omnipaque 350. Coronaland sagittal reformations. 3D MIP reconstructed images generated [facility] work[facility]. Comparison: None available Findings: Vascular: Abdominal [...] VASCULAR ULTRASOUND REPORT LYNDON SMITH Accession#: ?? [id number] : ?1970 ?? Study Date: ?? 10/01/2023 1:51:47 PM Age: ?53 years ?? Tech: ? BHM Gender: M ?Referring MD: GHAZALA ISSA Site: [facility] Study performed: ?Lower extremity resting SASKIA, [...] ? Index +-----+ +--------+ +-----+ 0.96 ?147 ?BELT NOTCHER ?104 ? 0.68 +-----+ +--------+ +-----+ 0.61 ? 94 ?DPA ? +-----+ +--------+ +-----+ 0.39 ? 59 ? Digit 1 ?37 ? 0.24 +-----+ +--------+ +-----+ Chris Newell MD. Electronically signed on 10/01/2023 5:35:37 PM This study was performed and interpreted by a service accredited by the Intersocietal Accreditation Commission (IAC/Vascular), www.intersocietal.org/vascular Report generated by [employer]. ??Final ?? Procedure Note Chris Newell MD - 10/01/2023 VASCULAR ULTRASOUND REPORT LYNDON SMITH : 1970 Study Date: 10/01/2023 1:51:47 PM Age: 53 years Tech: [facility] Gender: M Referring MD: GHAZALA ISSA Site: [facility] V[facility] Center Study performed: Lower extremity resting [...] 152 Index +-----+ +--------+ +-----+ 0.96 147 BELT NOTCHER 104 0.68 +-----+ +--------+ +-----+ 0.61 94 DPA +-----+ +--------+ +-----+ 0.39 59 Digit 1 37 0.24 +-----+ +--------+ +-----+ Chris Newell MD. Electronically signed on 10/01/2023 5:35:37 PM This study was performed and interpreted by a service accredited by theIntersocietal Accreditation Commission (IAC/Vascular),www.intersocietal.org/vascular Report generated by [employer]. Final Ghazala RODRIGUEZ US * SCAN-ULTRASOUND REPORT (08/26/2023 12:00 AM 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) Anatomical Region Laterality Modality Other Scanner OTHER * (ABNORMAL) LIPID PANEL W REFLEX MEASURED LDL (11/10/2015 12:32 PM CDT) CHOLESTEROL,TOTAL 218(H) 100 - 199 mg/dL 11/10/2015 1:17 PM CDT [facility] TRIGLYCERIDES 444(H) <150 mg/dL 11/10/2015 1:17 PM CDT [facility] HDL CHOLESTEROL 32(L) >40 mg/dL 11/10/2015 1:17 PM CDT [facility] NON-HDL CHOLESTEROL 186(H) <145 mg/dl 11/10/2015 1:17 PM CDT [facility] CHOL/HDL RATIO 6.81(H) <4.50 11/10/2015 1:17 PM CDT [facility] LDL CHOLESTEROL 11/10/2015 1:17 PM CDT [facility] Comment:Invalid LDL when Tri g >400, reflexed to measured LDL PATIENT STATUS FASTING 11/10/2015 1:17 PM CDT [facility] Blood specimen (specimen) BLOOD SPECIMEN / Unknown Venipuncture / Unknown 11/10/2015 12:32 PM CDT 11/10/2015 12:32 PM CDT Kem Hamilton MD CHEMISTRY [facility] [address] [place] [address], [place] [phone] from Last 3 Months or Most Recently Relevant to Health Maintenance Advance Directives * Full Code (Latest Code Status on File) Date Activated Date Inactivated Comments 12/13/2014 9:01 AM 12/13/2014 9:11 PM Care Teams Laborer Steel Handling Relationship Specialty Start Date End Date Chucky Fregoso MD [address] [place] [address] PCP - General Family Practice 05/28/18 None . 04/29/14
== END 2023-11-11 09:00 | disposition home or self-care (01) ==
LOC: WOUND 08:59
PROVIDERS: PCP Family Medicine; Visit Provider Nurse Practitioner Family
DX: I70.245 Atherosclerosis of native arteries of left leg with ulceration of other part of foot (principal); E11.621 Type 2 diabetes mellitus with foot ulcer; L97.528 Non-pressure chronic ulcer of other part of left foot with other specified severity; S91.302A Unspecified open wound, left foot, initial encounter; Z79.84 Long term (current) use of oral hypoglycemic drugs; Z79.85 Long-term (current) use of injectable non-insulin antidiabetic drugs
CPT/HCPCS: 97597

== ENCOUNTER 2023-12-02 13:01 | Outpatient (CLI) | payer MEDICARE, SELFPAY ==
--- OUTSIDE RECORDS SUMMARY | 2023-12-02 13:03 | XMS_ITS | Clinical Summary ---
Author Organization [facility] Address [place], [place] [address] Care Team Providers Care Scrubber Operator Name Role Phone None Unavailable Unavailable Chucky [...] diabetes mellitus with other neurologic complication, unspecified shelter insulin use status Inject 0.75 mg subcutaneous [...] diabetes mellitus with diabetic neuropathy, unspecified whether shelter insulin use TAKE 2 TABLETS BY MOUTH [...] Encounters Date Type Department Care Team Description 11/20/2023 8:30 AM CDT Office Visit [facility] [address] [place] [phone] Mary Bradley MD Follow Up (6 week F/U) 11/20/2023 Travel 10/21/2023 9:53 AM CDT - 10/21/2023 11:59 PM CDT Hospital Encounter [facility] [address] [place] [address] Selina Crawford NP Non-healing open wound of toe, sequela; PAD (peripheral artery disease) (HC) 10/21/2023 Travel 10/09/2023 Telephone [facility] [address] [place] [address] Mary Bradley MD Follow Up 10/09/2023 Telephone [facility] [place] [address] [place] [address] Mary Bradley MD Follow Up 10/01/2023 2:00 PM CDT Office Visit [facility] [address] [place] [address] Mary Bradley MD CV Vascular New (Consult; Arterial insufficiency. Referred by Dr. Chucky Fregoso-[facility], all records scanned to [facility]. U/S from [place]-08/26/19 24 available in [facility], report scanned to [facility]. SASKIA's scheduled prior.) 10/01/2023 1:30 PM CDT - 10/01/2023 11:59 PM CDT Hospital Encounter [facility] [address] [place] [address] Ghazala Issa PA Moore, Brian H 10/01/2023 Travel 09/26/2023 Orders Only [facility] [place] [address] [place] [address] Ghazala Issa PA 1 scan: (1-Ord) US ANKLE BRACHIAL INDEX BILATERAL ([id number]) from Last 3 Months Immunizations Name Administration [...] Sign Reading Time Taken Comments Blood Pressure 130/70 11/20/2023 8:20 AM CDT Pulse 90 11/20/2023 8:20 AM CDT Temperature 36.5 ??C (97.7 ??F) 07/03/2023 10:[address] Respiratory Rate 16 10/01/2023 2:17 PM CDT Oxygen Saturation 97% 11/20/2023 8:20 AM CDT Inhaled Oxygen Concentration - - Weight 65.3 kg (144 lb) 11/20/2023 8:20 AM CDT Height 175.3 cm (5' 9) 07/03/2023 10:10 PM BUCKLE SEWER Body Mass Index 21.27 07/03/2023 10:10 PM BU[facility]LE SEWER Plan of Treatment Upcoming Encounters Date Type Department Care Team (Late st Contact Info) Description 12/24/2023 11:30 AM CDT Office Visit [address] [address] Mary Bradley MD [address] [place] [address] Health Maintenance Due Date Last Done Comments [...] CDT Arterial insufficiency of lower extremity (HC) LIPID PANEL W REFLEX MEASURED LDL Routine [...] For Patients: As a result of the Century Cures Act, medical imagingexams and procedure reports are released immediately into your electronicmedical record. You may view this report before your referring provider.If you have questions, please contact your health care provider. Indication: Nonhealing wound on the toe. Peripheral vascular disease. Claudication. Technique: CTA of the abdomen/pelvis/lower extremities. 147 mL Omnipaque 350. Coronaland sagittal reformations. 3D MIP reconstructed images generated on [employer] workstation. Comparison: None available Findings: Vascular: Abdominal [...] 10/21/2023 6:01:41 PM (Electronically Signed) Selina Crawford [place] MACHINE OPERATOR CT * US ANKLE BRACHIAL INDEX BILATERAL (10/01/2023 2:12 PM CDT) Anatomical Region Laterality Modality ANKLES, ANKLE L, ANKLE R Ultraso und 10/01/2023 1:51 PM CDT Narrative 10/01/2023 5:35 PM CDT VASCULAR ULTRASOUND REPORT MELISSA CHERELLE Accession#: ?? [id number] : ?1970 ?? Study Date: ?? 10/01/2023 1:51:47 PM Age: ?53 years ?? Tech: ? BHM Gender: M ?Referring MD: GHAZALA ISSA Site: [facility] Study performed: ?Lower extremity resting [...] ? Index +-----+ +--------+ +-----+ 0.96 ?147 ?ROLLING MACHINE OPERATOR ?104 ? 0.68 +-----+ +--------+ +-----+ 0.61 ? 94 ?DPA ? +-----+ +--------+ +-----+ 0.39 ? 59 ? Digit 1 ?37 ? 0.24 +-----+ +--------+ +-----+ Chris Newell MD. Electronically signed on 10/01/2023 5:35:37 PM This study was performed and interpreted by a service accredited by the Intersocietal Accreditation Commission (IAC/Vascular), www.intersocietal.org/vascular Report generated by [employer]. ??Final ?? Procedure Note Chris Newell MD - 10/01/2023 VASCULAR ULTRASOUND REPORT LYNDON SMITH : 1970 Study Date: 10/01/2023 1:51:47 PM Age: 53 years Tech: [facility] Gender: M Referring MD: GHAZALA ISSA Site: [facility] Study performed: Lower extremity [...] 152 Index +-----+ +--------+ +-----+ 0.96 147 ROLLING MACHINE OPERATOR 104 0.68 +-----+ +--------+ +-----+ 0.61 94 DPA +-----+ +--------+ +-----+ 0.39 59 Digit 1 37 0.24 +-----+ +--------+ +-----+ Chris Newell MD. Electronically signed on 10/01/2023 5:35:37 PM This study was performed and interpreted by a service accredited by theIntersocietal Accreditation Commission (IAC/Vascular),www.intersocietal.org/vascular Report generated by [employer]. Final Ghazala YEE * (ABNORMAL) LIPID PANEL W REFLEX MEASURED LDL (11/10/2015 12:32 PM CDT) [facility] CHOLESTEROL,TOTAL 218(H) 100 - 199 mg/dL 11/10/2015 1:17 PM CDT [facility] TRIGLYCERIDES 444(H) <150 mg/dL 11/10/2015 1:17 PM CDT [facility] HDL CHOLESTEROL 32(L) >40 mg/dL 11/10/2015 1:17 PM CDT [facility] NON-HDL CHOLESTEROL 186(H) <145 mg/dl 11/10/2015 1:17 PM CDT [facility] CHOL/HDL RATIO 6.81(H) <4.50 11/10/2015 1:17 PM CDT [facility] LDL CHOLESTEROL 11/10/2015 1:17 PM CDT [facility] Comment:Invalid LDL when Tri g >400, reflexed to measured LDL PATIENT STATUS FASTING 11/10/2015 1:17 PM CDT [facility] Blood specimen (specimen) BLOOD SPECIMEN / Unknown Venipuncture / Unknown 11/10/2015 12:32 PM CDT 11/10/2015 12:32 PM CDT Kem Hamilton MD CHEMISTRY Performing Organization Address City/State/[facility] Co de Phone Number [facility] [address] [place] [address], from Last 3 Months or Most Recently Relevant to Health Maintenance Advance Directives * Full Code (Latest Code Status on File) Date Activated Date Inactivated Comments 12/13/2014 9:01 AM 12/13/2014 9:11 PM Care Teams Scrubber Operator Relationship Specialty Start Date End Date Chucky Fregoso MD [address] [place] [address] PCP - General Family Practice 05/28/18 None . 04/29/14
== END 2023-12-02 13:02 | disposition home or self-care (01) ==
LOC: WOUND 13:02
PROVIDERS: PCP Family Medicine; Visit Provider Nurse Practitioner Family
DX: I70.245 Atherosclerosis of native arteries of left leg with ulceration of other part of foot (principal); E11.621 Type 2 diabetes mellitus with foot ulcer; L97.528 Non-pressure chronic ulcer of other part of left foot with other specified severity; Z79.84 Long term (current) use of oral hypoglycemic drugs; Z79.85 Long-term (current) use of injectable non-insulin antidiabetic drugs
CPT/HCPCS: 11042

== ENCOUNTER 2023-12-23 15:07 | Outpatient (CLI) | payer MEDICARE, SELFPAY ==
--- OUTSIDE RECORDS SUMMARY | 2023-12-23 15:09 | XMS_ITS | Clinical Summary ---
Author Organization [facility] Address [place], [place] [address] Care Team Providers Care Manager House Name Role Phone None Unavailable Unavailable Chucky [...] diabetes mellitus with other neurologic complication, unspecified long term care social worker insulin use status Inject 0.75 mg subcutaneous [...] diabetes mellitus with diabetic neuropathy, unspecified whether long term care social worker insulin use TAKE 2 TABLETS BY MOUTH [...] Description 11/20/2023 8:30 AM CDT Office Visit [facility] [address] [place] [address] Mary Bradley MD Follow Up (6 week F/U) 11/20/2023 Travel 10/21/2023 9:53 AM CDT - 10/21/2023 11:59 PM CDT Hospital Encounter [facility] [address] [place] [address] Selina Crawford NP Non-healing open wound of toe, sequela; PAD (peripheral artery disease) (HC) 10/21/2023 Travel 10/09/2023 Telephone [facility] [address] [place] [address] Mary Bradley MD Follow Up 10/09/2023 Telephone [facility] [address] [place] [address] Mary Bradley MD Follow Up 10/01/2023 2:00 PM CDT Office Visit [facility] [address] [place] [address] Mary Bradley MD CV Vascular New (Consult; Arterial insufficiency. Referred by Dr. Chucky [facility]regoso-[facility], all records scanned to [facility]. U/S from [place]-08/26/19 24 available in [facility], report scanned to [facility]. SASKIA's scheduled prior.) 10/01/2023 1:30 PM CDT - 10/01/2023 11:59 PM CDT Hospital Encounter [facility] [address] [place] [address] Ghazala Issa PA Moore, Brian H 10/01/2023 Travel 09/26/2023 Orders Only [facility] [address] [place] [address] Ghazala Issa PA 1 scan: (1-Ord) US ANKLE BRACHIAL INDEX BILATERAL ([id number]) from Last 3 Months Immunizations Name Administration [...] 175.3 cm (5' 9) 07/03/2023 10:10 PM [facility] Body Mass Index 21.27 07/03/2023 10:10 PM MOSS PICKER Plan of Treatment Upcoming Encounters Date Type Department Care Team (Late st Contact Info) Description 12/24/2023 11:30 AM CDT Office Visit [address] [address] Mary Bradley MD [address] [place] [address] Health Maintenance Due Date Last Done Comments [...] reformations. 3D MIP reconstructed images generated on [employer]Tem[employer] workstation. Comparison: None available Findings: Vascular: Abdominal [...] 10/21/2023 6:01:41 PM (Electronically Signed) Selina Crawford ROLLER [employer] CT * US ANKLE BRACHIAL INDEX BILATERAL (10/01/2023 2:12 PM CDT) Anatomical Region Laterality Modality ANKLES, ANKLE L, ANKLE R Ultraso und 10/01/2023 1:51 PM CDT Narrative 10/01/2023 5:35 PM CDT VASCULAR ULTRASOUND REPORT MELISSA CHERELLE Accession#: ?? [id number] : ?1970 ?? Study Date: ?? 10/01/2023 1:51:47 PM Age: ?53 years ?? Tech: ? BHM Gender: M ?Referring MD: GHAZALA ISSA Site: [facility] V[facility] Study performed: ?Lower extremity resting [...] ? Index +-----+ +--------+ +-----+ 0.96 ?147 ?WEB PRESS ROLL TENDER ?104 ? 0.68 +-----+ +--------+ +-----+ 0.61 ? 94 ?DPA ? +-----+ +--------+ +-----+ 0.39 ? 59 ? Digit 1 ?37 ? 0.24 +-----+ +--------+ +-----+ Chris Newell MD. Electronically signed on 10/01/2023 5:35:37 PM This study was performed and interpreted by a service accredited by the Intersocietal Accreditation Commission (IAC/Vascular), www.intersocietal.org/vascular Report generated by [employer]. ??Final ?? Procedure Note Chris Newell MD - 10/01/2023 VASCULAR ULTRASOUND REPORT LYNDON SMITH : 1970 Study Date: 10/01/2023 1:51:47 PM Age: 53 years Tech: [facility] Gender: M Referring MD: GHAZALA ISSA Site: [facility] Study performed: Lower extremity resting [...] 152 Index +-----+ +--------+ +-----+ 0.96 147 WEB PRESS ROLL TENDER 104 0.68 +-----+ +--------+ +-----+ 0.61 94 DPA +-----+ +--------+ +-----+ 0.39 59 Digit 1 37 0.24 +-----+ +--------+ +-----+ Chris Newell MD. Electronically signed on 10/01/2023 5:35:37 PM This study was performed and interpreted by a service accredited by theIntersocietal Accreditation Commission (IAC/Vascular),www.[email or web address]/vascular Report generated by [employer]. Final Ghazala YEE * (ABNORMAL) LIPID PANEL W REFLEX MEASURED LDL (11/10/2015 12:32 PM CDT) [facility] CHOLESTEROL,TOTAL 218(H) 100 - 199 mg/dL 11/10/2015 1:17 PM CDT [facility] TRIGLYCERIDES 444(H) <150 mg/dL 11/10/2015 1:17 PM CDT [facility] HDL CHOLESTEROL 32(L) >40 mg/dL 11/10/2015 1:17 PM CDT [facility] NON-HDL CHOLESTEROL 186(H) <145 mg/dl 11/10/2015 1:17 PM CDT [facility] CHOL/HDL RATIO 6.81(H) <4.50 11/10/2015 1:17 PM CDT [facility] LDL CHOLESTEROL 11/10/2015 1:17 PM CDT [facility] Comment:Invalid LDL when Tri g >400, reflexed to measured LDL PATIENT STATUS FASTING 11/10/2015 1:17 PM CDT [facility] Blood specimen (specimen) BLOOD SPECIMEN / Unknown Venipuncture / Unknown 11/10/2015 12:32 PM CDT 11/10/2015 12:32 PM CDT Kem Hamilton MD CHEMISTRY Performing Organization Address City/State/[facility] Co de Phone Number [facility] [address] [place] [address], from Last 3 Months or Most Recently Relevant to Health Maintenance Advance Directives * Full Code (Latest Code Status on File) Date Activated Date Inactivated Comments 12/13/2014 9:01 AM 12/13/2014 9:11 PM Care Teams Manager House Relationship Specialty Start Date End Date Chucky Fregoso MD [address] [place] [address] PCP - General Family Practice 05/28/18 None . 04/29/14
== END 2023-12-23 15:08 | disposition home or self-care (01) ==
LOC: WOUND 15:08
PROVIDERS: PCP Family Medicine; Visit Provider Nurse Practitioner Family
DX: I70.245 Atherosclerosis of native arteries of left leg with ulceration of other part of foot (principal); E11.621 Type 2 diabetes mellitus with foot ulcer; L97.528 Non-pressure chronic ulcer of other part of left foot with other specified severity; Z79.84 Long term (current) use of oral hypoglycemic drugs
CPT/HCPCS: 97597

== ENCOUNTER 2024-01-06 15:25 | Outpatient (CLI) | payer MEDICARE, SELFPAY ==
--- OUTSIDE RECORDS SUMMARY | 2024-01-06 15:29 | XMS_ITS | Clinical Summary ---
Author Organization [facility] Address [place], [place] [address] Care Team Providers Care Media Analyst Name Role Phone None Unavailable Unavailable Chucky Fregoso MD Primary Care Provider + Allergies Active Allergy Reactions Criticality Noted Date Comments Levetiracetam Hallucinations 12/24/2023 Metformin Diarrhea,Nausea Only 09/07/2015 Medications Medication Sig Dispensed Refills Start Date End Date Status aspirin enteric coated (ECOTRIN) 325 mg tablet Take 1 tablet by mouth once daily with a meal. 0 12/22/2014 Active dulaglutide (TRULICITY) 0.75 mg/0.5 mL injectionIndicati ons:Uncontrolled type 2 diabetes mellitus with other neurologic complication, unspecified halfway insulin use status Inject 0.75 mg subcutaneous once weekly. Failed metformin and glimepiride 1 pen 5 05/13/2017 Active nitroglycerin (NITROSTAT) 0.4 mg sublingual tabletIndications :Chest pain in adult Place 1 tablet under the tongue every 5 minutes if needed for Chest Pain. 1 Bottle 2 11/21/2017 Active omeprazole (PRILOSEC) 40 mg Delayed-Release capsuleIndication s:Chronic gastritis, presence of bleeding unspecified, unspecified gastritis type TAKE 1 CAPSULE BY MOUTH EVERY DAY 90 capsule 2 01/17/2018 Active traZODone (DESYREL) 50 mg tabletIndications :Depression, major, recurrent, in complete remission (HC) TAKE 1 TABLET BY MOUTH AT BEDTIME NEEDED 90 tablet 1 02/24/2018 Active glimepiride (AMARYL) 4 mg tabletIndications :Uncontrolled type 2 diabetes mellitus with diabetic neuropathy, unspecified whether ad terminal makeup operator insulin use TAKE 2 TABLETS BY MOUTH EVERY DAY WITH A MEAL 60 tablet 03/30/2018 Active baclofen (LIORESAL) 10 mg tabletIndications :Muscle spasticity TAKE 1 TABLET BY MOUTH THREE TIMES DAILY NEEDED 90 tablet 04/01/2018 Active losartan (COZAAR) 100 mg tablet Take [...] mg by mouth three times daily. Active levETIRAcetam (KEPPRA) 500 mg tabletIndications :Seizure-like activity (HC) Take 1 Tablet (500 mg) by mouth two times daily. 60 Tablet 04/18/2023 4 Discontinue d(*Patient states no longer taking) aspirin 325 mg tablet Take 325 mg by mouth once daily. 4 Discontinue d(*Patient states no longer taking) Active Problems Problem Noted Date Diagnosed Date [...] Encounters Date Type Department Care Team Description 12/24/2023 11:30 AM CDT Office Visit [address] [address] Mary Bradley MD Follow Up (1 Month F/U Pt states feeling ok, no changes. ) 12/24/2023 Travel 11/20/2023 8:30 AM CDT Office Visit [facility] [address] [place] [address] Mary Bradley MD Follow Up (6 week F/U) 11/20/2023 Travel 10/21/2023 9:53 AM CDT - 10/21/2023 11:59 PM CDT Hospital Encounter [facility] [address] [place] [address] Selina Crawford NP Non-healing open wound of toe, sequela; PAD (peripheral artery disease) (HC) 10/21/2023 Travel 10/09/2023 Telephone [facility] [address] [place] [address] Mary Bradley MD Follow Up 10/09/2023 Telephone [facility] [address] [place] [address] Mary Bradley MD Follow Up from Last 3 Months Immunizations Name Administration Dates Next Due Influenza A (H1N1), Inactivated 07/27/2009 Influenza Virus, Unspecified 05/10/2008 Influenza, IIV4 05/13/2017,07/20/2014 Pneumococcal Poly,23-Valent (Pneumovax) 09/08/19 14 Social History Tobacco Use Types Packs/Day Years Used Date Smoking Tobacco: Some Days Cigarettes 0.5 40 Started: 07/01/1983; Last attempted to quit: 07/01/2023 Smokeless Tobacco: Never Tobacco Cessation:Ready to Q uit: Not Asked; Counseling Given: Not Answered Comments:pt declines Alcohol Use [...] Sign Reading Time Taken Comments Blood Pressure 84/66 12/24/2023 11:23 AM CDT Pulse 102 12/24/2023 11:23 AM CDT Temperature 36.5 ??C (97.7 ??F) 07/03/2023 10:[address] Respiratory Rate 16 10/01/2023 2:17 PM CDT Oxygen Saturation 93% 12/24/2023 11:23 AM CDT Inhaled Oxygen Concentration - - Weight 65.8 kg (145 lb) 12/24/2023 11:23 AM CDT pt reported Height 175.3 cm (5' 9) 12/24/2023 11:23 AM CDT Body Mass Index 21.41 12/24/2023 11:23 AM CDT Plan of Treatment Upcoming Encounters Date Type Department Care Team (Late st Contact Info) Description 01/21/2024 1:30 PM CDT Office Visit [address] [phone] Mary Bradley MD [address] [place] [address] Health Maintenance Due Date Last Done Comments Tdap 1982 HIV for age 15-65 1986 Hepatitis C screening for ag e 18-79 1989 Tetanus booster 1991 Pneumococcal series for age 6-64 (2 of 2 - PCV) 09/07/2014 09/07/2013 Colonoscopy through age 75 2016 Depression screening for age 12+ 11/21/2018 11/21/2017, 05/13/2017, 03/15/2016 Lipids for age 45-75 11/09/2020 11/10/2015, 11/10/19 16 Zoster (shingles) series for age 50+ (1 of 2) 2021 COVID-19 vaccine series (1 - 2022-24 season) 2023 Influenza for age 50-64 03/01/2024 05/13/20 17, 07/20/2014, 07/27/2009, Additional history exists BMI (ht and wt on same day) for age 18+ 12/23/2024 12/24/2023 Procedures Procedure Name Priority Date/Time Associated Diagnosis Comments CT ANGIO ABDOMEN PELVIS LOWER EXTREMITY RUNOFF Routine 10/21/2023 10:44 AM CDT Non-healing open wound of toe, sequela PAD (peripheral artery disease) (HC) LIPID PANEL W REFLEX MEASURED LDL [...] reformations. 3D MIP reconstructed images generated on [employer] workstation. Comparison: None available Findings: Vascular: Abdominal [...] 10/21/2023 6:01:41 PM (Electronically Signed) Selina Crawford CYLINDER DIE MACHINE HELPER CT * (ABNORMAL) LIPID PANEL W REFLEX MEASURED LDL (11/10/2015 12:32 PM CDT) CHOLESTEROL,TOTAL 218(H) 100 - 199 mg/dL 11/10/2015 1:17 PM CDT [facility] TRIGLYCERIDES 444(H) <150 mg/dL 11/10/2015 1:17 PM CDT [facility] HDL CHOLESTEROL 32(L) >40 mg/dL 11/10/2015 1:17 PM CDT [facility] NON-HDL CHOLESTEROL 186(H) <145 mg/dl 11/10/2015 1:17 PM CDT [facility] CHOL/HDL RATIO 6.81(H) <4.50 11/10/2015 1:17 PM CDT [facility] LDL CHOLESTEROL 11/10/2015 1:17 PM CDT [facility] Comment:Invalid LDL when Tri g >400, reflexed to measured LDL PATIENT STATUS FASTING 11/10/2015 1:17 PM CDT [facility] Blood specimen (specimen) BLOOD SPECIMEN / Unknown Venipuncture / Unknown 11/10/2015 12:32 PM CDT 11/10/2015 12:32 PM CDT Kem Hamilton MD CHEMISTRY [address] [address], from Last 3 Months or Most Recently Relevant to Health Maintenance Advance Directives * Full Code (Latest Code Status on File) Date Activated Date Inactivated Comments 12/13/2014 9:01 AM 12/13/2014 9:11 PM Care Teams Media Analyst Relationship Specialty Start Date End Date Chucky Fergoso MD [address] [place] [address] PCP - General Family Practice 05/28/18 None . 04/29/14
== END 2024-01-06 15:26 | disposition home or self-care (01) ==
LOC: WOUND 15:25
PROVIDERS: PCP Family Medicine; Visit Provider Nurse Practitioner Family
DX: I70.245 Atherosclerosis of native arteries of left leg with ulceration of other part of foot (principal); E11.621 Type 2 diabetes mellitus with foot ulcer; L97.528 Non-pressure chronic ulcer of other part of left foot with other specified severity; Z79.84 Long term (current) use of oral hypoglycemic drugs; Z79.85 Long-term (current) use of injectable non-insulin antidiabetic drugs
CPT/HCPCS: 97597

== ENCOUNTER 2024-01-20 14:21 | Outpatient (CLI) | payer MEDICARE, SELFPAY ==
--- OUTSIDE RECORDS SUMMARY | 2024-01-20 14:23 | XMS_ITS | Clinical Summary ---
Author Organization [employer] [facility] Address [place], [place] [address] Care Team Providers Care Medical Assisting Program Director Name Role Phone None Unavailable Unavailable Chucky [...] diabetes mellitus with other neurologic complication, unspecified termite treater helper insulin use status Inject 0.75 mg subcutaneous [...] diabetes mellitus with diabetic neuropathy, unspecified whether termite treater helper insulin use TAKE 2 TABLETS BY MOUTH [...] Description 12/24/2023 11:30 AM CDT Office Visit [address] [address] Mary Bradley MD Follow Up (1 Month F/U Pt states feeling ok, no changes. ) 12/24/2023 Travel 11/20/2023 8:30 AM CDT Office Visit [facility] [address] [place] [address] Mary Bradley MD Follow Up (6 week F/U) 11/20/2023 Travel 10/21/2023 9:53 AM CDT - 10/21/2023 11:59 PM CDT Hospital Encounter [facility] [address] [place] [address] Selina Crawford NP Non-healing open wound of toe, sequela; PAD (peripheral artery disease) (HC) 10/21/2023 Travel from Last 3 Months Immunizations Name Administration [...] Description 01/21/2024 1:30 PM CDT Office Visit [address] [address] Mary Bradley MD [address] [place] [address] Health Maintenance Due Date Last Done Comments [...] 2) 2021 COVID-19 vaccine series ( - season) 2023 Influenza for age 50-64 03/01/2024 [...] For Patients: ??As a result of the Cures Act, medical imaging exams and procedure [...] 6:01:41 PM (Electronically Signed) Procedure Note Ronaldo Dagile MD - 10/21/2023 For Patients: As a [...] reformations. 3D MIP reconstructed images generated on [employer] workstation. Comparison: None available Findings: Vascular: Abdominal [...] 10/21/2023 6:01:41 PM (Electronically Signed) Selina Crawford GROUND CREW LINES PERSON CT * (ABNORMAL) LIPID PANEL W REFLEX MEASURED LDL (11/10/2015 12:32 PM CDT) CHOLESTEROL,TOTAL 218(H) 100 - 199 mg/dL 11/10/2015 1:17 PM CDT [facility] TRIGLYCERIDES 444(H) <150 mg/dL 11/10/2015 1:17 PM CDT [facility] HDL CHOLESTEROL 32(L) >40 mg/dL 11/10/2015 1:17 PM CDT [facility] NON-HDL CHOLESTEROL 186(H) <145 mg/dl 11/10/2015 1:17 PM CDT [facility] CHOL/HDL RATIO 6.81(H) <4.50 11/10/2015 1:17 PM CDT [facility] LDL CHOLESTEROL 11/10/2015 1:17 PM CDT [facility] Comment:Invalid LDL when Tri g >400, reflexed to measured LDL PATIENT STATUS FASTING 11/10/2015 1:17 PM CDT [facility] Blood specimen (specimen) BLOOD SPECIMEN / Unknown Venipuncture / Unknown 11/10/2015 12:32 PM CDT 11/10/2015 12:32 PM CDT Kem Hamilton MD CHEMISTRY [address] [address], from Last 3 Months or Most Recently Relevant to Health Maintenance Advance Directives * Full Code (Latest Code Status on File) Date Activated Date Inactivated Comments 12/13/2014 9:01 AM 12/13/2014 9:11 PM Care Teams Medical Assisting Program Director Relationship Specialty Start Date End Date Chucky Fregoso MD [address] [place] [address] PCP - General Family Practice 05/28/18 None . 04/29/14
== END 2024-01-20 14:22 | disposition home or self-care (01) ==
LOC: WOUND 14:21
PROVIDERS: PCP Family Medicine; Visit Provider Nurse Practitioner Family
DX: I70.245 Atherosclerosis of native arteries of left leg with ulceration of other part of foot (principal); E11.621 Type 2 diabetes mellitus with foot ulcer; L97.528 Non-pressure chronic ulcer of other part of left foot with other specified severity; L97.522 Non-pressure chronic ulcer of other part of left foot with fat layer exposed; I10 Essential (primary) hypertension; Z79.84 Long term (current) use of oral hypoglycemic drugs; Z79.85 Long-term (current) use of injectable non-insulin antidiabetic drugs
CPT/HCPCS: 80048; 80061; 84460; 97597

== ENCOUNTER 2024-02-17 14:10 | Outpatient (CLI) | payer MEDICARE, SELFPAY ==
--- OUTSIDE RECORDS SUMMARY | 2024-02-17 14:17 | XMS_ITS | Clinical Summary ---
Author Organization [employer] [facility] Address [place], [place] [address] Care Team Providers Care Loading Inspector Name Role Phone None Unavailable Unavailable Chucky [...] diabetes mellitus with other neurologic complication, unspecified prison insulin use status Inject 0.75 mg subcutaneous [...] diabetes mellitus with diabetic neuropathy, unspecified whether prison insulin use TAKE 2 TABLETS BY MOUTH [...] Description 12/24/2023 11:30 AM CDT Office Visit [address] [address] Mary Bradley MD Follow Up (1 Month F/U Pt states feeling ok, no changes. ) 12/24/2023 Travel 11/20/2023 8:30 AM CDT Office Visit [facility] at [address] [phone] Mary Bradley MD Follow Up (6 week F/U) 11/20/2023 Travel from Last 3 Months Immunizations Name [...] 12/24/2023 11:23 AM CDT Plan of Treatment Health Maintenance Due Date Last Done Comments [...] Procedure Name Priority Date/Time Associated Diagnosis Comments LIPID PANEL W REFLEX MEASURED LDL Routine 11/10/2015 12:32 PM CDT Type 2 diabetes mellitus with diabetic neuropathy (HCC) from Last 3 Months or Most Recently Relevant to Health Maintenance Results * (ABNORMAL) LIPID PANEL W REFLEX MEASURED LDL (11/10/2015 12:32 PM CDT) CHOLESTEROL,TOTAL 218(H) 100 - 199 mg/dL 11/10/2015 1:17 PM CDT [facility] TRIGLYCERIDES 444(H) <150 mg/dL 11/10/2015 1:17 PM CDT [facility] HDL CHOLESTEROL 32(L) >40 mg/dL 11/10/2015 1:17 PM CDT [facility] NON-HDL CHOLESTEROL 186(H) <145 mg/dl 11/10/2015 1:17 PM CDT [facility] CHOL/HDL RATIO 6.81(H) <4.50 11/10/2015 1:17 PM CDT [facility] LDL CHOLESTEROL 11/10/2015 1:17 PM CDT [facility] Comment:Invalid LDL when Tri g >400, reflexed to measured LDL PATIENT STATUS FASTING 11/10/2015 1:17 PM CDT [facility] Blood specimen (specimen) BLOOD SPECIMEN / Unknown Venipuncture / Unknown 11/10/2015 12:32 PM CDT 11/10/2015 12:32 PM CDT Kem Hamilton MD CHEMISTRY [facility] [address] [facility] [place] [place] [address], from Last 3 Months or Most Recently Relevant to Health Maintenance Advance Directives * Full Code (Latest Code Status on File) Date Activated Date Inactivated Comments 12/13/2014 9:01 AM 12/13/2014 9:11 PM Care Teams Loading Inspector Relationship Specialty Start Date End Date Chucky Fregoso MD [address] [place] [address] PCP - General Family Practice 05/28/18 None . 04/29/14
== END 2024-02-17 14:11 | disposition home or self-care (01) ==
LOC: WOUND 14:11
PROVIDERS: PCP Family Medicine; Visit Provider Nurse Practitioner Family
DX: I70.245 Atherosclerosis of native arteries of left leg with ulceration of other part of foot (principal); E11.621 Type 2 diabetes mellitus with foot ulcer; L97.528 Non-pressure chronic ulcer of other part of left foot with other specified severity; L97.522 Non-pressure chronic ulcer of other part of left foot with fat layer exposed; Z79.84 Long term (current) use of oral hypoglycemic drugs; Z79.85 Long-term (current) use of injectable non-insulin antidiabetic drugs
CPT/HCPCS: 97597

== ENCOUNTER 2024-03-16 14:36 | Outpatient (CLI) | payer MEDICARE, SELFPAY ==
--- OUTSIDE RECORDS SUMMARY | 2024-03-16 14:38 | XMS_ITS | Clinical Summary ---
Author Organization [employer] [facility] s & [facility] Address [place], [place] [address] Care Team Providers Care Certified Coder Name Role Phone None Unavailable Unavailable Chucky [...] diabetes mellitus with other neurologic complication, unspecified long-term insulin use status Inject 0.75 mg subcutaneous [...] diabetes mellitus with diabetic neuropathy, unspecified whether manager intermediate insulin use TAKE 2 TABLETS BY MOUTH [...] noncompliance 08/14/2023 Right carotid artery occlusion 08/14/2023 Overview (08/14/2023): 2014, Stroke Non-healing open wound of toe 08/14/2023 Arterial insufficiency of lower extremity 2023 Episode of abnormal behavior 12/13/2014 Overview (12/13/2014): Became combative/minimally responsive DM (diabetes mellitus), type 2 with complication s 12/13/2014 Episode of shaking 12/13/2014 Overview (12/13/2014): Possible seizure activity; loss of bladder control Chronic pain 12/13/2014 Overview (12/13/2014): Patient's girlfriend Hx of completed stroke 12/13/2014 Overview (12/13/2014): Chronic left sided weakness (no use of left arm, weakness in left leg but able to ambulate short distances); uses motorized scooter CAD S/P percutaneous coronary angioplasty 2014 Overview (12/13/2014): With stent placement; 08/2013; on chronic antiplatelet therapy Marijuana use 12/13/2014 Overview (12/13/2014): Used marijuana Saturday evening Encounters Date Type Department Care Team Description 12/24/2023 11:30 AM CDT Office Visit [facility] [address] [phone] Mary Bradley MD Follow Up (1 Month F/U Pt states feeling ok, no changes. ) 12/24/2023 Travel from Last 3 Months Immunizations Name [...] (1 of 2) 2021 COVID-19 vaccine series (2022- season) 2024 Influenza for age 50-64 03/01/2024 05/13/20 17, [...] - 199 mg/dL 11/10/2015 1:17 PM CDT [facility] TRIGLYCERIDES 444(H) <150 mg/dL 11/10/2015 1:17 PM CDT [facility] HDL CHOLESTEROL 32(L) >40 mg/dL 11/10/2015 1:17 PM CDT [facility] NON-HDL CHOLESTEROL 186(H) <145 mg/dl 11/10/2015 1:17 PM CDT [facility] CHOL/HDL RATIO 6.81(H) <4.50 11/10/2015 1:17 PM CDT [facility] LDL CHOLESTEROL 11/10/2015 1:17 PM CDT [facility] Comment:Invalid LDL when Tri g >400, reflexed to measured LDL PATIENT STATUS FASTING 11/10/2015 1:17 PM CDT [facility] Blood specimen (specimen) BLOOD SPECIMEN / Unknown Venipuncture / Unknown 11/10/2015 12:32 PM CDT 11/10/2015 12:32 PM CDT Kem Hamilton MD [facility] [place] [facility] [address] [facility] [place] [address], [place] [phone] from Last 3 Months or Most Recently Relevant to Health Maintenance Advance Directives * Full Code (Latest Code Status on File) Date Activated Date Inactivated Comments 12/13/2014 9:01 AM 12/13/2014 9:11 PM Care Teams Certified Coder Relationship Specialty Start Date End Date Chucky Fregoso MD [address] [place] [address] PCP - General Family Practice 05/28/18 None . 04/29/14
== END 2024-03-16 14:37 | disposition home or self-care (01) ==
LOC: WOUND 14:36
PROVIDERS: PCP Family Medicine; Visit Provider Nurse Practitioner Family
DX: I70.245 Atherosclerosis of native arteries of left leg with ulceration of other part of foot (principal); E11.621 Type 2 diabetes mellitus with foot ulcer; L97.528 Non-pressure chronic ulcer of other part of left foot with other specified severity; Z79.84 Long term (current) use of oral hypoglycemic drugs; Z79.85 Long-term (current) use of injectable non-insulin antidiabetic drugs
CPT/HCPCS: 97597

== ENCOUNTER 2024-03-30 14:21 | Outpatient (CLI) | payer MEDICARE, SELFPAY ==
--- OUTSIDE RECORDS SUMMARY | 2024-03-30 14:24 | XMS_ITS | Clinical Summary ---
Author Organization [employer] [facility] Address [place], [place] [address] Care Team Providers Care Rehabilitation Services Counselor Name Role Phone None Unavailable Unavailable Chucky [...] diabetes mellitus with diabetic neuropathy, unspecified whether salvage determiner insulin use TAKE 2 TABLETS BY MOUTH [...] 12/13/2014 Overview (12/13/2014): Used marijuana Saturday evening Immunizations Name Administration Dates Next Due Influenza [...] (1 of 2) 2021 COVID-19 vaccine series (2023- season) 2024 Influenza for age 50-64 03/01/2024 05/13/20, 07/20/2014, 07/27/2009, Additional history exists BMI (ht [...] - 199 mg/dL 11/10/2015 1:17 PM CDT [facility] TRIGLYCERIDES 444(H) <150 mg/dL 11/10/2015 1:17 PM CDT [facility] HDL CHOLESTEROL 32(L) >40 mg/dL 11/10/2015 1:17 PM CDT [facility] NON-HDL CHOLESTEROL 186(H) <145 mg/dl 11/10/2015 1:17 PM CDT [facility] CHOL/HDL RATIO 6.81(H) <4.50 11/10/2015 1:17 PM CDT [facility] LDL CHOLESTEROL 11/10/2015 1:17 PM CDT [facility] Comment:Invalid LDL when Tri g >400, reflexed to measured LDL PATIENT STATUS FASTING 11/10/2015 1:17 PM CDT [facility] Blood specimen (specimen) BLOOD SPECIMEN / Unknown Venipuncture / Unknown 11/10/2015 12:32 PM CDT 11/10/2015 12:32 PM CDT Kem Hamilton MD CHEMISTRY [place] [address] [facility] [place] [address], from Last 3 Months or Most Recently Relevant to Health Maintenance Advance Directives * Full Code (Latest Code Status on File) Date Activated Date Inactivated Comments 12/13/2014 9:01 AM 12/13/2014 9:11 PM Care Teams Rehabilitation Services Counselor Relationship Specialty Start Date End Date Chucky Fregoso MD [address] [place] [address] PCP - General Family Practice 05/28/18 None . 04/29/14
== END 2024-03-30 14:22 | disposition home or self-care (01) ==
LOC: WOUND 14:22
PROVIDERS: PCP Family Medicine; Visit Provider Nurse Practitioner Family
DX: I70.245 Atherosclerosis of native arteries of left leg with ulceration of other part of foot (principal); E11.621 Type 2 diabetes mellitus with foot ulcer; L97.528 Non-pressure chronic ulcer of other part of left foot with other specified severity; Z79.84 Long term (current) use of oral hypoglycemic drugs; Z79.85 Long-term (current) use of injectable non-insulin antidiabetic drugs
CPT/HCPCS: 97597

== ENCOUNTER 2024-04-13 14:32 | Outpatient (CLI) | payer MEDICARE, SELFPAY ==
--- OUTSIDE RECORDS SUMMARY | 2024-04-13 14:36 | XMS_ITS | Clinical Summary ---
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 Inject 0.75 mg subcutaneous [...] mellitus with diabetic neuropathy, unspecified whether long distance billing operator insulin use TAKE 2 TABLETS BY [...] - 199 mg/dL 11/10/2015 1:17 PM CDT [facility] TRIGLYCERIDES 444(H) <150 mg/dL 11/10/2015 1:17 PM CDT [facility] HDL CHOLESTEROL 32(L) >40 mg/dL 11/10/2015 1:17 PM CDT [facility] NON-HDL CHOLESTEROL 186(H) <145 mg/dl 11/10/2015 1:17 PM CDT [facility] CHOL/HDL RATIO 6.81(H) <4.50 11/10/2015 1:17 PM CDT [facility] LDL CHOLESTEROL 11/10/2015 1:17 PM CDT [facility] Comment:Invalid LDL when Tri g >400, reflexed to measured LDL PATIENT STATUS FASTING 11/10/2015 1:17 PM CDT [facility] Blood specimen (specimen) BLOOD SPECIMEN / Unknown Venipuncture / Unknown 11/10/2015 12:32 PM CDT 11/10/2015 12:32 PM CDT Kem Hamilton MD CHEMISTRY [place] [address] [place] [address], from Last 3 Months or Most Recently Relevant to Health Maintenance Advance Directives * Full Code (Latest Code Status on File) Date Activated Date Inactivated Comments 12/13/2014 9:01 AM 12/13/2014 9:11 PM Care Teams Printed Circuit Boards Solder Leveler Relationship Specialty Start Date End Date Chucky Fregoso MD [address] [place] [address] PCP - General Family Practice 05/28/18 None . 04/29/14
== END 2024-04-13 14:33 | disposition home or self-care (01) ==
LOC: WOUND 14:32
PROVIDERS: PCP Family Medicine; Visit Provider Nurse Practitioner Family
DX: I70.245 Atherosclerosis of native arteries of left leg with ulceration of other part of foot (principal); E11.621 Type 2 diabetes mellitus with foot ulcer; L97.528 Non-pressure chronic ulcer of other part of left foot with other specified severity; L97.522 Non-pressure chronic ulcer of other part of left foot with fat layer exposed; Z79.84 Long term (current) use of oral hypoglycemic drugs; Z79.85 Long-term (current) use of injectable non-insulin antidiabetic drugs
CPT/HCPCS: 97597

== ENCOUNTER 2024-05-11 15:05 | Outpatient (CLI) | payer MEDICARE, SELFPAY | END 2024-05-11 15:06 | disposition home or self-care (01) | LOC: WOUND 15:05 | PROVIDERS: PCP Family Medicine; Visit Provider Family Medicine | DX: I70.245 Atherosclerosis of native arteries of left leg with ulceration of other part of foot (principal); E11.621 Type 2 diabetes mellitus with foot ulcer; L97.528 Non-pressure chronic ulcer of other part of left foot with other specified severity; S91.105A Unspecified open wound of left lesser toe(s) without damage to nail, initial encounter; Z79.84 Long term (current) use of oral hypoglycemic drugs | CPT/HCPCS: 11042; 11043 ==

== ENCOUNTER 2024-06-15 14:49 | Outpatient (CLI) | payer MEDICARE, SELFPAY | END 2024-06-15 14:50 | disposition home or self-care (01) | LOC: WOUND 14:49 | PROVIDERS: PCP Family Medicine; Visit Provider Nurse Practitioner Family | DX: I70.245 Atherosclerosis of native arteries of left leg with ulceration of other part of foot (principal); E11.621 Type 2 diabetes mellitus with foot ulcer; L97.528 Non-pressure chronic ulcer of other part of left foot with other specified severity; L97.526 Non-pressure chronic ulcer of other part of left foot with bone involvement without evidence of necrosis; Z79.84 Long term (current) use of oral hypoglycemic drugs; Z79.85 Long-term (current) use of injectable non-insulin antidiabetic drugs | CPT/HCPCS: 11043; 97597 ==

== ENCOUNTER 2024-06-22 13:54 | Outpatient (CLI) | payer MEDICARE, SELFPAY | END 2024-06-22 13:55 | disposition home or self-care (01) | PROVIDERS: PCP Family Medicine; Visit Provider Family Medicine | DX: G40.909 Epilepsy, unspecified, not intractable, without status epilepticus (principal); E11.65 Type 2 diabetes mellitus with hyperglycemia; R53.83 Other fatigue | CPT/HCPCS: 80048; 83735; 84443; 85025 ==

== ENCOUNTER 2024-07-06 14:45 | Outpatient (CLI) | payer MEDICARE, SELFPAY | END 2024-07-06 14:46 | disposition home or self-care (01) | LOC: WOUND 14:46 | PROVIDERS: PCP Family Medicine; Visit Provider Nurse Practitioner Family | DX: I70.245 Atherosclerosis of native arteries of left leg with ulceration of other part of foot (principal); E11.621 Type 2 diabetes mellitus with foot ulcer; L97.528 Non-pressure chronic ulcer of other part of left foot with other specified severity; Z72.0 Tobacco use; Z79.84 Long term (current) use of oral hypoglycemic drugs; Z79.85 Long-term (current) use of injectable non-insulin antidiabetic drugs | CPT/HCPCS: 97597 ==

== ENCOUNTER 2024-08-03 14:58 | Outpatient (CLI) | payer MEDICARE, SELFPAY | END 2024-08-03 14:59 | disposition home or self-care (01) | LOC: WOUND 14:59 | PROVIDERS: PCP Family Medicine; Visit Provider Nurse Practitioner Family | DX: I70.245 Atherosclerosis of native arteries of left leg with ulceration of other part of foot (principal); L97.528 Non-pressure chronic ulcer of other part of left foot with other specified severity; Z72.0 Tobacco use; Z79.84 Long term (current) use of oral hypoglycemic drugs; Z79.85 Long-term (current) use of injectable non-insulin antidiabetic drugs; E11.621 Type 2 diabetes mellitus with foot ulcer | CPT/HCPCS: 11043; 97597 ==

== ENCOUNTER 2024-08-31 14:41 | Outpatient (CLI) | payer MEDICARE, SELFPAY | END 2024-08-31 14:42 | disposition home or self-care (01) | LOC: WOUND 14:41 | PROVIDERS: PCP Family Medicine; Visit Provider Nurse Practitioner Family | DX: I70.245 Atherosclerosis of native arteries of left leg with ulceration of other part of foot (principal); E11.621 Type 2 diabetes mellitus with foot ulcer; L97.528 Non-pressure chronic ulcer of other part of left foot with other specified severity; Z72.0 Tobacco use; Z79.84 Long term (current) use of oral hypoglycemic drugs | CPT/HCPCS: 11043 ==

== ENCOUNTER 2024-09-28 13:58 | Outpatient (CLI) | payer MEDICARE, SELFPAY | END 2024-09-28 13:59 | disposition home or self-care (01) | LOC: WOUND 13:58 | PROVIDERS: PCP Family Medicine; Visit Provider Nurse Practitioner Family | DX: E11.621 Type 2 diabetes mellitus with foot ulcer (principal); I70.245 Atherosclerosis of native arteries of left leg with ulceration of other part of foot; L97.526 Non-pressure chronic ulcer of other part of left foot with bone involvement without evidence of necrosis; Z72.0 Tobacco use; Z79.84 Long term (current) use of oral hypoglycemic drugs | CPT/HCPCS: 97597 ==

== ENCOUNTER 2024-11-24 15:51 | Outpatient (CLI) | payer MEDICARE, SELFPAY | END 2024-11-24 15:52 | disposition home or self-care (01) | LOC: FBOREF 15:51 | PROVIDERS: PCP Family Medicine; Visit Provider Family Medicine | DX: E78.2 Mixed hyperlipidemia (principal) | CPT/HCPCS: 80061 ==

== ENCOUNTER 2024-12-31 12:06 | Outpatient (CLI) | payer MEDICARE, SELFPAY | END 2024-12-31 12:07 | disposition home or self-care (01) | PROVIDERS: PCP Family Medicine; Visit Provider Family Medicine | DX: I10 Essential (primary) hypertension (principal); E11.621 Type 2 diabetes mellitus with foot ulcer; L97.509 Non-pressure chronic ulcer of other part of unspecified foot with unspecified severity; M86.9 Osteomyelitis, unspecified | CPT/HCPCS: 80048; 85025; 86140 ==

== ENCOUNTER 2025-03-15 10:49 | Outpatient (CLI) | payer MEDICARE, SELFPAY | END 2025-03-15 10:50 | disposition home or self-care (01) | LOC: FBOREF 10:50 | PROVIDERS: PCP Family Medicine; Visit Provider Family Medicine | DX: I10 Essential (primary) hypertension (principal); E11.9 Type 2 diabetes mellitus without complications | CPT/HCPCS: 80048 ==